=== PATIENT | female | born 1965 | race Hispanic/Latino ===

== ENCOUNTER 2022-07-26 19:45 | Emergency (ER) | payer SELFPAY ==
[~2022-07-26] VITALS: Ht 157.5 cm; Wt 88.5 kg
[2022-07-26] MEDS ORDERED: KETOROLAC TROMETHAMINE 60 MG/2 ML VIAL IM ONE (20:15)
[2022-07-26] MEDS ORDERED: CYCLOBENZAPRINE HCL 10 MG TAB PO ONE (20:15)
[2022-07-26] MEDS ORDERED: CYCLOBENZAPRINE10 MG PO (21:48)
== END 2022-07-26 21:49 | disposition home or self-care (01) ==
LOC: ER 19:50
DX: M54.6 Pain in thoracic spine (principal); M54.50 Low back pain, unspecified; G89.29 Other chronic pain; I10 Essential (primary) hypertension
CPT/HCPCS: 72070; 72100; 99283; J1885